=== PATIENT | female | born 1990 | race American Indian/Alaskan Native ===

== ENCOUNTER 2022-04-21 17:18 | Emergency (ER) | payer SELFPAY ==
[2022-04-21 19:03] VITALS: BP 130/87
[2022-04-22 01:47] LABS: Bacteria,Urine 1+ /HPF (Negative); Hyaline Casts,Urine 2 /LPF; Mucus,Urine 3+ /HPF
[2022-04-22 01:49] LABS: Bilirubin,Urine Negative (Negative); Blood,Urine Negative (Negative); Color,Urine Yellow (Yellow); Protein,Urine <15 mg/dL mg/dL (Negative); Urobilinogen,Urine < 2.0 mg/dL (<2.0)
[2022-04-22 02:33] LABS: Basophils # (Auto) 0.1 K/mm3 (0.0-0.1); Basophils % (Auto) 0.6 % (0.0-1.8); Eosinophils # (Auto) 0.4 K/mm3 (0.0-0.4); Eosinophils % (Auto) 3.2 % (0.0-4.3); Hematocrit 39.8 % (30.3-42.9); Hemoglobin 12.8 gm/dl (10.1-14.3); Lymphocytes # (Auto) 3.8 K/mm3 (1.2-5.4); Lymphocytes % (Auto) 33.9 % (13.4-35.0); Mean Corpuscular HGB Conc 32 % (30-34); Mean Corpuscular Volume 88 fl (79-97); Monocytes # (Auto) 0.9 K/mm3 (0.0-0.8); Monocytes % (Auto) 7.7 % (0.0-7.3); Platelet Count 193 K/mm3 (140-440); Red Blood Count 4.52 M/mm3 (3.65-5.03); Red Cell Distribution Width 14.5 % (13.2-15.2)
--- NOTE | 2022-04-22 02:54 | Ultrasound Report ---
US OB <= 14 weeks fetus, US OB transvaginal INDICATION / CLINICAL INFORMATION: abd pain pos preg COMPARISON: None available. TECHNIQUE: Using a transcutaneous and endovaginal probe, multiple grayscale, color Doppler, and spect ral Doppler images of the uterus and fetus were captured and stored. FINDINGS: Uterus measures 12.2 x 5.3 x 6.3 cm and lies in a retroverted position. A single intrauterine gestational sac is demonstrated with no sac and pole present. Along the m argin of the gestational sac, there is a mixed area of hypoechoic echotexture measuring 2.1 x 0.7 x 1 .5 cm compatible subchorionic hemorrhage. heart rate is 143 bpm. Based on mean crown-rump length of 13.2 mm, the estimated gestational age is 7 weeks 4 days, EDC 2022. Clinical estimated gestational age based on LMP of 02/28/2022 is 7 weeks 4 days. Right ovary measures 1.6 x 1.0 x 0.7 cm and appears within normal limits. Color flow is present, low resistance arterial spectral waveforms are present. Left ovary measures 3.6 x 2.5 x 2.3 cm. A 2 cm corpus luteum cyst is present. The left ovary demonstr ates presence of color flow and low resistance arterial waveforms. Urinary bladder is not well distended. IMPRESSION: 1. Single living intrauterine gestation at approximately 7 weeks 4 days gestational age. Small subcho rionic hemorrhage present along the margin of the sac as detailed. Signer Name: Bhupendra Troncoso II, MD Signed: 04/22/2022 2:49 AM Workstation Name: [id number]
--- NOTE | 2022-04-22 04:15 | Emergency Department Report ---
ED Abdominal Pain HPI - General Chief Complaint: Abdominal Pain Stated Complaint: LOWER ABD PAIN Time Seen by Provider: 04/22/22 01:22 Source: patient Mode of arrival: Ambulatory Limitations: No Limitations - History of Present Illness Initial Comments: Is a 31-year-old female who presents for abdominal cramping bilateral lower. Patient states she is 8 weeks . Patient is G3, . Symptoms are described as 4/10 and cramping. There is no fevers no chills patient states she had 2 episodes of spotting on yesterday. There is no fevers no chills no nausea or vomiting. No vaginal discharge, no back pain. Patient arrived to ED via POV patient drove her self patient is ambulatory with steady gait patient with no acute distress. MD Complaint: abdominal pain Severity scale (0 -10): 5 - Related Data Previous Rx's Medication Instructions Recorded Last Taken Type Acetaminophen 650 mg PO Q6H PRN #30 cap 04/22/22 Unknown Rx cephALEXin [Keflex] 500 mg PO BID 7 Days #14 cap 04/22/22 Unknown Rx Allergies Allergy/AdvReac Type Severity Reaction Status Date / Time No Known Allergies Allergy Verified 04/21/22 19:03 ED Review of Systems ROS: Stated complaint: LOWER ABD PAIN Other details as noted in HPI Constitutional: denies: chills, fever Eyes: denies: eye pain, eye discharge, vision change ENT: denies: ear pain, throat pain Respiratory: denies: cough, shortness of breath, wheezing Cardiovascular: denies: chest pain, palpitations Endocrine: no symptoms reported Gastrointestinal: abdominal pain. denies: nausea, vomiting, diarrhea, constipation, melena Genitourinary: denies: urgency, dysuria, frequency, hematuria, discharge Musculoskeletal: denies: back pain, joint swelling, arthralgia Skin: denies: rash, lesions Neurological: denies: headache, weakness, paresthesias, vertigo Psychiatric: denies: anxiety, depression Hematological/Lymphatic: denies: easy bleeding, easy bruising ED Past Medical Hx - Medications Home Medications: Home Medications Medication Instructions Recorded Confirmed Last Taken Type Acetaminophen 650 mg PO Q6H PRN #30 cap 04/22/22 Unknown Rx cephALEXin [Keflex] 500 mg PO BID 7 Days #14 cap 04/22/22 Unknown Rx ED Physical Exam - General Limitations: No Limitations General appearance: alert, in no apparent distress - Head Head exam: Present: normocephalic, normal inspection - Eye Eye exam: Present: EOMI Pupils: Present: normal accommodation - ENT ENT exam: Present: mucous membranes moist - Neck Neck exam: Present: normal inspection, full ROM. Absent: lymphadenopathy - Respiratory Respiratory exam: Present: normal lung sounds bilaterally. Absent: respiratory distress, wheezes, stridor - Cardiovascular Cardiovascular Exam: Present: regular rate, normal rhythm, normal heart sounds. Absent: systolic murmur, diastolic murmur, rubs, gallop - GI/Abdominal GI/Abdominal exam: Present: soft, normal bowel sounds. Absent: distended, tenderness, guarding, rebound, rigid, bruit, hernia - Rectal Rectal exam: Present: deferred - Extremities Exam Extremities exam: Present: normal inspection, normal capillary refill. Absent: full ROM, pedal edema - Back Exam Back exam: Present: normal inspection, full ROM. Absent: CVA tenderness (R), CVA tenderness (L) - Neurological Exam Neurological exam: Present: alert, oriented X3, CN II-XII intact - Expanded Neurological Exam Expanded Patient oriented to: Present: person, place, time Speech: Present: fluid speech Motor strength exam: RUE: 5, LUE: 5, RLE: 5, LLE: 5 Best Eye Response ([place]): (4) open spontaneously Best Motor Response ([place]): (6) obeys commands Best Verbal Response ([place]): (5) oriented [place] Total: 15 - Psychiatric Psychiatric exam: Present: normal affect, normal mood - Skin Skin exam: Present: warm, dry, intact, normal color. Absent: rash ED Course Vital Signs 04/21/22 18:59 Temperature 98.3 F Pulse Rate 75 Respiratory 16 Rate Blood Pressure 130/87 [Right] O2 Sat by Pulse 100 Oximetry ED Medical Decision Making - Lab Data Result diagrams: 04/22/22 01:48 Labs 04/22/22 04/22/22 04/22/22 01:48 01:48 Unknown WBC 11.3 H RBC 4.52 Hgb 12.8 Hct 39.8 MCV 88 MCH 28 MCHC 32 RDW 14.5 Plt Count 193 Lymph % (Auto) 33.9 [place] % (Auto) 7.7 H Eos % (Auto) 3.2 Baso % (Auto) 0.6 Lymph # (Auto) 3.8 [place] # (Auto) 0.9 H Eos # (Auto) 0.4 Baso # (Auto) 0.1 Seg Neutrophils % 54.6 Seg Neutrophils # 6.2 HCG, Quant [id number] H Urine Color Yellow Urine Turbidity Clear Urine pH 7.0 Ur Specific [place] 1.020 Urine Protein <15 mg/dl Urine Glucose (UA) Negative Urine Ketones Negative Urine Blood Negative Urine Nitrite Negative Ur Reducing Substances Not Reportable Urine Bilirubin Negative Urine Ictotest Not Reportable Urine Urobilinogen < 2.0 Ur Leukocyte Esterase Negative Urine WBC (Auto) 11.0 H Urine RBC (Auto) 4.0 U Epithel Cells (Auto) 25.0 H Urine Bacteria (Auto) 1+ Hyaline Casts 2 Urine Mucus 3+ Urine Yeast ([place]) Few - Radiology Data Radiology results: report reviewed, image reviewed US OB <= 14 weeks fetus, US OB transvaginal INDICATION / CLINICAL INFORMATION: abd pain pos preg COMPARISON: None available. TECHNIQUE: Using a transcutaneous and endovaginal probe, multiple grayscale, color Doppler, and spectral Doppler images of the uterus and fetus were captured and stored. FINDINGS: Uterus measures 12.2 x 5.3 x 6.3 cm and lies in a retroverted position. A single intrauterine gestational sac is demonstrated with no sac and pole present. Along the margin of the gestational sac, there is a mixed area of hypoechoic echotexture measuring 2.1 x 0.7 x 1.5 cm compatible subchorionic hemorrhage. heart rate is 143 bpm. Based on mean crown-rump length of 13.2 mm, the estimated gestational age is 7 weeks 4 days, EDC 12/05/2022. Clinical estimated gestational age based on LMP of 02/28/2022 is 7 weeks 4 days. Right ovary measures 1.6 x 1.0 x 0.7 cm and appears within normal limits. Color flow is present, low resistance arterial spectral waveforms are present. Left ovary measures 3.6 x 2.5 x 2.3 cm. A 2 cm corpus luteum cyst is present. The left ovary demonstrates presence of color flow and low resistance arterial waveforms. Urinary bladder is not well distended. IMPRESSION: 1. Single living intrauterine gestation at approximately 7 weeks 4 days gestational age. Small subchorionic hemorrhage present along the margin of the sac as detailed. Signer Name: Alex Troncoso II, MD Signed: 04/22/2022 2:49 AM Workstation Name: [id number] Transcribed By: LOUIS Dictated By: ALEX TRONCOSO II, MD Electronically Authenticated By: ALEX TRONCOSO II, MD Signed Date/Time: 04/22/22248 DD/ 3 TD/TT: Print - Medical Decision Making Ultrasound single IUP 7 weeks and 2 days. heart rate 1 4 3 bpm, UA noted as above CBC is normal. Plan DC to home with prescriptions. Follow-up with [facility] in 1 to 2 days. Return to emergency department should symptoms worsen. Patient verbalizes agreement and understanding of discharge plan. Patient DC'd home in stable condition at this time. Patient is currently alert oriented x3 tolerating p.o. intake without nausea or vomiting. Critical care attestation.: If time is entered above; I have spent that time in minutes in the direct care of this critically ill patient, excluding procedure time. ED Disposition Clinical Impression: Abdominal pain during in first trimester Disposition: 01 HOME / SELF CARE / HOMELESS Is pt being admited?: No Does the pt Need Aspirin: No Condition: Stable Instructions: Abdominal Pain (ED), Abdominal Pain During , Eas y-to-Read Additional Instructions: Take medications as prescribed, follow-up with your [facility] in 1 to 2 days. Return to emergency department should symptoms worsen. Prescriptions: Acetaminophen 650 mg PO Q6H PRN #30 cap PRN Reason: pain fever cephALEXin [Keflex] 500 mg PO BID 7 Days #14 cap Referrals: JEVON MCKEON MD [Staff Physician] - 3-5 Days Forms: Work/School Release Form(ED) Time of Disposition: 04:21
== END 2022-04-22 04:43 | disposition home or self-care (01) ==
LOC: ED 17:18
DX: O26.891 Other specified pregnancy related conditions, first trimester (principal); R10.30 Lower abdominal pain, unspecified; Z3A.01 Less than 8 weeks gestation of pregnancy; Z79.899 Other long term (current) drug therapy
CPT/HCPCS: 36415; 76801; 76817; 81001; 84702; 85025; 87086; 99284